=== PATIENT | female | born 1990 ===

== ENCOUNTER 2022-05-13 04:05 | Inpatient (IN) | payer OTHER ==
[~2022-05-13 04:05] MED LIST: Azithromycin 500 MG Vial ONE; Lactated Ringers 1,000 ML IV SCH; Sodium Chloride 0.9% 250 ML ONE
[2022-05-13] MEDS ORDERED: Phenylephrine HCl In 0.9% NaCl 1 MG/10 ML Vial ONE ×2 (04:11→04:14)
[2022-05-13] MEDS ORDERED: Oxytocin 10 Units/1 ML SDV ONE ×7 (04:13→04:37)
[2022-05-13] MEDS ORDERED: Ondansetron 4 MG/2 ML SDV ONE ×2 (04:14)
[2022-05-13] MEDS ORDERED: Morphine PF 10 MG/10 ML SDV ONE (04:14)
[2022-05-13] MEDS ORDERED: Dexamethasone 4 MG/ML 5 ML MDV ONE (04:15)
[2022-05-13] MEDS ORDERED: ceFAZolin 1 GM Vial ONE ×2 (04:15)
[2022-05-13] MEDS ORDERED: Tranexamic Acid 1,000 MG in Sodium Chloride 0.9% 100 ML IV PRN (18:59)
[2022-05-13] MEDS ORDERED: Methylergonovine 0.2 MG/1 ML Amp IM PRN (18:59)
[2022-05-13] MEDS ORDERED: Oxytocin 10 Units/1 ML SDV IM PRN (18:59)
[2022-05-13] MEDS ORDERED: Ondansetron 4 MG/2 ML SDV IVPUSH PRN ×2 (18:59→19:07)
[2022-05-13] MEDS ORDERED: Misoprostol 200 MCG Tab RECTAL PRN (18:59)
[2022-05-13] MEDS ORDERED: Bisacodyl 10 MG Supp RECTAL PRN (18:59)
[2022-05-13] MEDS ORDERED: Lanolin 100% Cream 7 GM Tube TOP PRN (18:59)
[2022-05-13] MEDS ORDERED: Acetaminophen/oxyCODONE 325-5 MG Tab PO PRN (18:59)
[2022-05-13] MEDS ORDERED: diphenhydrAMINE 50 MG/ML SDV IVPUSH PRN (18:59)
[2022-05-13] MEDS ORDERED: Lactated Ringers 1,000 ML IV SCH ×2 (19:00)
[2022-05-13] MEDS ORDERED: Nalbuphine HCl 10 MG/ 1ML Amp IVPUSH PRN (19:07)
[2022-05-13] MEDS ORDERED: HYDROmorphone 2 MG/ML Syringe IVPUSH PRN (19:07)
[2022-05-13] MEDS ORDERED: Acetaminophen 1,000 MG in Premix Bag 1 BAG IV SCH (21:30)
[2022-05-13] MEDS: Ketorolac 30 MG/ML SDV IVPUSH SCH (21:45)
[2022-05-13] MEDS: Docusate Sodium 100 MG Cap PO SCH (21:45)
[2022-05-14] MEDS: Ketorolac 30 MG/ML SDV IVPUSH SCH (03:36)
[2022-05-14] MEDS: Acetaminophen/oxyCODONE 325-5 MG Tab PO PRN ×2 (09:15→15:28)
[2022-05-14] MEDS: Docusate Sodium 100 MG Cap PO SCH ×2 (09:15→22:29)
[2022-05-14] MEDS ORDERED: Ibuprofen 800 MG Tab PO PRN (09:31)
[2022-05-15] MEDS: Acetaminophen/oxyCODONE 325-5 MG Tab PO PRN ×2 (04:03→12:35)
[2022-05-15] MEDS: Docusate Sodium 100 MG Cap PO SCH (08:00)
== END 2022-05-15 15:00 | disposition home or self-care (01) | DRG 788 ==
LOC: MW.OB 04:05
PROVIDERS: ADMIT Obstetrics & Gynecology; ATTEND Obstetrics & Gynecology
PROC: 10D00Z1 Extraction of Products of Conception, Low, Open Approach (ICD-10-PCS; principal; 2022-05-13)
PROC: 3E0P7VZ Introduction of Hormone into Female Reproductive, Via Natural or Artificial Opening (ICD-10-PCS; 2022-05-13)
PROC: 3E033VJ Introduction of Other Hormone into Peripheral Vein, Percutaneous Approach (ICD-10-PCS; 2022-05-13)
PROC: 3E0S3BZ Introduction of Anesthetic Agent into Epidural Space, Percutaneous Approach (ICD-10-PCS; 2022-05-13)
DX: O48.0 Post-term pregnancy (principal); Z37.0 Single live birth; O33.9 Maternal care for disproportion, unspecified; O62.2 Other uterine inertia; O33.4XX0 Maternal care for disproportion of mixed maternal and fetal origin, not applicable or unspecified; Z3A.41 41 weeks gestation of pregnancy
CPT/HCPCS: 36415; 59025; 85014; 85018; A9270-GY; J0131; J0690; J1100; J1790; J1885; J2274; J2405; J2590; J7120